=== PATIENT | female | born 1960 | race Caucasian/White ===

== ENCOUNTER 2019-12-14 15:19 | Outpatient (CLI) | payer BC, SELFPAY ==
--- NOTE | ~2019-12-14 | MM_ITS ---
EXAMINATION: MM screening [facility] BI w shannon HISTORY: Screening mammogram TECHNIQUE: Craniocaudal and mediolateral oblique 3-D tomosynthesis images were obtained and synthetic 2-D images were generated. CAD analysis was submitted and interpreted. COMPARISON: 11/24/2018 bilateral digital screening mammogram 11/21/2017 bilateral diagnostic digital mammogram 10/30/2017 bilateral digital screening mammogram BREAST PARENCHYMAL COMPOSITION: The breasts are heterogeneously dense, which may obscure small masses . FINDINGS: There is no evidence of suspicious mass, calcification, or architectural distortion to sugg est malignancy in either breast. There has been no suspicious interval change. IMPRESSION: 1. No mammographic evidence of malignancy. 2. Recommend routine screening mammography in one year. BI-RADS Category 1: Negative Reviewed, dictated and finalized at location A. CLINICIAN
--- NOTE | ~2019-12-14 | DEXA_ITS ---
Bone Density Report Name: Krissy Cheng Age: 59 Sex: Female Ethnicity: White Date of : 1960 Indication: postmenopausal osteoporosis; height loss; hysterectomy; Referring Provider: FLAKO LAZAR Study: Bone densitometry was performed. Exam Date: December 14, 2019 Accession number: [id number] Bone Density: Region BMD T-score Z-score Classification AP Spine (L1, L2, L4) 0.566 -4.3 -3.0 Osteoporosis Femoral Neck (Left) 0.458 -3.5 -2.4 Osteoporosis Total Hip (Left) 0.496 -3.7 -2.9 Osteoporosis Total Hip Bilateral Avg 0.458 -4.0 -3.2 Osteoporosis Femoral Neck (Right) 0.388 -4.2 -3.0 Osteoporosis Total Hip (Right) 0.420 -4.3 -3.5 Osteoporosis World Health Organization criteria for BMD impression classify patients as: Normal (T-score at or above -1.0), Osteopenia (T-score between -1.0 and -2.5), or Osteoporosis (T-score at or below -2.5). 10-year Fracture Risk: FRAX not reported because: Some T-score for Spine Total or Hip Total or Femoral Neck at or below -2.5 Previous Exams: Region Exam Age BMD T-score BMD Change BMD Change Date g/cm2 vs Baseline vs Previous AP Spine(L1, L2, L4) 12/14/2019 59 0.566 -4.3 -0.066(-10.5%) -0.028(-4.7%)* 10/30/2017 57 0.594 -4.0 -0.038(-6.1%)* -0.038(-6.1%)* 10/24/2016 56 0.632 -3.7 Total Hip(Left) 12/14/2019 59 0.496 -3.7 -0.018(-3.5%) 0.015(3.2%) 10/30/2017 57 0.481 -3.8 -0.033(-6.4%)* -0.033(-6.4%)* 10/24/2016 56 0.514 -3.5 Total Hip(Right) 12/14/2019 59 0.420 -4.3 -0.080(-15.9%) -0.056(-11.8%) 10/30/2017 57 0.477 -3.8 -0.023(-4.6%) -0.023(-4.6%) 10/24/2016 56 0.500 -3.6 *Denotes significance at 95% confidence level, LSC for AP Spine = 0.022 g/cm2, LSC for Total Hip = 0.027 g/cm2 Clinical Information Provided by Patient: Has used the following medications: Vitamin D, Calcium Has the following medical conditions: Hysterectomy Patient maximum height was 66.0 Menopause Age: 42 No regular weight bearing exercise Drinks caffeinated beverages Onset of menses at age 16 Number of children 1 Impression: The patient has osteoporosis, based on the Total Spine T-score. The BMD for the AP Spine(L1, L2, L4) decreased, changing by -4.7% since the last DXA exam. The BMD for the Total Hip(Right) decreased, changing by -11.8% since the last DXA exam. Discussion: HIGH RISK OF FRACTURE. BONE DENSITY IS UNDESIRABLY LOW AT ONE OR MORE SKELETAL SITES, CONSISTENT WITH OSTEOPOROSIS
== END 2019-12-14 15:20 | disposition home or self-care (01) ==
PROVIDERS: PCP Internal Medicine; Visit Provider Obstetrics & Gynecology
DX: M81.0 Age-related osteoporosis without current pathological fracture (principal); Z78.0 Asymptomatic menopausal state; Z12.31 Encounter for screening mammogram for malignant neoplasm of breast
CPT/HCPCS: 77063; 77067; 77080

== ENCOUNTER 2021-02-16 15:55 | Outpatient (CLI) | payer BC, SELFPAY | END 2021-02-16 15:56 | disposition home or self-care (01) | LOC: ANHCOVIDVC 15:55 | PROVIDERS: PCP Internal Medicine | DX: Z23 Encounter for immunization (principal) | CPT/HCPCS: 0001A; 91300 ==

== ENCOUNTER 2021-03-09 15:36 | Outpatient (CLI) | payer BC, SELFPAY | END 2021-03-09 15:37 | disposition home or self-care (01) | LOC: ANHCOVIDVC 15:37 | PROVIDERS: PCP Internal Medicine | DX: Z23 Encounter for immunization (principal) | CPT/HCPCS: 0002A; 91300 ==

== ENCOUNTER 2021-04-17 17:18 | Outpatient (CLI) | payer BC, SELFPAY ==
--- NOTE | ~2021-04-17 | MM_ITS ---
EXAMINATION: MM screening [facility] BI w shannon HISTORY: Screening mammogram TECHNIQUE: Craniocaudal and mediolateral oblique 3-D tomosynthesis images were obtained and synthetic 2-D images were generated. CAD analysis was submitted and interpreted. COMPARISON: 12/14/2019, 11/24/2018, 11/21/2017 BREAST PARENCHYMAL COMPOSITION: The breasts are heterogeneously dense, which may obscure small masses . FINDINGS: There is no evidence of suspicious mass, calcification, or architectural distortion to sugg est malignancy in either breast. There has been no suspicious interval change. IMPRESSION: 1. No mammographic evidence of malignancy. 2. Recommend routine screening mammography in one year. BI-RADS Category 1: Negative Reviewed, dictated and finalized at location A.
== END 2021-04-17 17:19 | disposition home or self-care (01) ==
LOC: ANHIMG 17:19
PROVIDERS: PCP Internal Medicine; Visit Provider Obstetrics & Gynecology
DX: Z12.31 Encounter for screening mammogram for malignant neoplasm of breast (principal)
CPT/HCPCS: 77063; 77067

== ENCOUNTER 2022-04-14 10:14 | Emergency (ER) | payer BC, SELFPAY ==
[2022-04-14] VITALS (23 sets, daily range): BP systolic 101–144; BP diastolic 45–80; PULSE 117–137; RESP 16–67; TEMP 37.7–37.8; O2SAT 95–100
--- NOTE | ~2022-04-14 | CT_ITS ---
EXAMINATION: CT BRAIN W/O DATE: 04/14/2022 11:09 INDICATION: Severe headache. Nausea. TECHNIQUE: Computed tomography (CT) of the head was performed without intravenous contrast. The dose- length product was 605.33 mGy-cm. Automated exposure control and iterative reconstruction technique w ere employed. COMPARISON: No prior studies for comparison. FINDINGS: Normal brain parenchymal volume for age. Normal ortega-white differentiation. No acute intrac ranial hemorrhage, infarction, mass or mass effect. No ventriculomegaly or midline shift. Midline sagittal images demonstrate a normal corpus callosum, c raniovertebral junction and sella turcica. Basilar cisterns are patent. Paranasal sinuses and mastoids are pneumatized. No depressed skull fractures. IMPRESSION: 1. No acute intracranial abnormality. Reviewed, dictated and finalized at location A.
--- NOTE | ~2022-04-14 | XR_ITS ---
EXAMINATION: XR chest 1V portable 04/14/2022 11:24 INDICATION: Fever PROCEDURE: AP portable chest COMPARISON: 08/02/2016 FINDINGS: The lungs are clear. The cardiomediastinal silhouette is within normal limits. There are no pleural effusions. There is no pneumothorax suspected. IMPRESSION: 1: NO ACUTE CARDIOPULMONARY DISEASE. Reviewed, dictated and finalized at location A.
--- NOTE | 2022-04-14 10:38 | ECG_ITS ---
Measurements Intervals [place] Rate: 137 P: 64 MN: 138 QRS: 88 QRSD: 85 T: 53 QT: 301 QTc: 455 Interpretive Statements SINUS TACHYCARDIA MODERATE ST DEPRESSION [0.05+ mV ST DEPRESSION] ABNORMAL ECG NO PREVIOUS ECG AVAILABLE FOR COMPARISON Electronically Signed On 04-14-2022 11:09:43 CDT by Mango Narvaez M.D.
[2022-04-14] MEDS: ONDANSETRON INJ 4 MG/2 ML VIAL IV PUSH (10:50)
[2022-04-14] MEDS: LACTATED RINGERS 1,000 ML 999 ML IV CONT ×2 (10:50→11:17)
[2022-04-14] MEDS: KETOROLAC 30 MG/ML VIAL (*BKC) IV PUSH (10:50)
[2022-04-14 10:53] LABS: Basophils Percent Auto 0.1 % (0.2-1.2); Eosinophils Absolute Auto 0.1 K/mm3 (0-0.3); Eosinophils Percent Auto 0.3 % (0-4.4); Hematocrit 37.2 % (37.0-47.0); Hemoglobin 12.3 g/dL (12.0-15.0); Immature Granulocyte Absolute 0.05 K/mm3 (0.00-0.031); Immature Granulocyte Percent A 0.3 % (0-0.5); Lymphocytes Absolute Auto 0.61 K/mm3 (0.9-3.2); Mean Corpuscular HGB Conc 33.1 g/dl (32-36); Mean Corpuscular Hemoglobin 30.8 pg (26-34); Mean Platelet Volume 10.5 fl (7.4-10.4); Monocytes Absolute Auto 0.5 K/mm3 (0.1-0.6); Monocytes Percent Auto 3.2 % (2.6-8.5); Neutrophils Absolute Auto 13.9 K/mm3 (1.3-6.7); Neutrophils Percent Auto 92.1 % (45.5-73.1); Platelet Count Result 249 k/mm3 (150-375); Red Cell Distribution Width 11.9 % (11.5-14.5); White Blood Count 15.1 K/mm3 (4.5-10.0)
[2022-04-14 11:03] LABS: Ethanol < 10 mg/dL (<10)
[2022-04-14 11:04] LABS: Lactic Acid Reflex 1.1 mmol/L (0.7-2.0)
[2022-04-14 11:05] LABS: Partial Thromboplastin Time 26.9 SECONDS (22.3-36.8)
[2022-04-14 11:08] LABS: Alanine Aminotransferase 20 U/L (6-35); Albumin Level 4.3 g/dL (3.5-5.1); Alkaline Phosphatase 86 U/L (38-126); Anion Gap 6 mmol/L (8-16); Aspartate Amino Transferase 28 U/L (14-36); Bilirubin,Total 0.3 mg/dL (0.2-1.3); Blood Urea Nitrogen 17 mg/dL (7-17); CRP < 0.5 mg/dL (<1.0); Calcium 9.3 mg/dL (8.4-10.2); Carbon Dioxide 27 mmol/L (22-30); Chloride 105 mmol/L (98-107); Estimated CRCL calculation 78 ml/min; Estimated Glomerular Filt Rate > 60; Glucose 110 mg/dL (65-110); Lipase 79 U/L (23-300); Magnesium 1.4 mg/dL (1.6-2.3); Potassium 3.6 mmol/L (3.4-5.0); Sodium 138 mmol/L (137-145)
--- NOTE | 2022-04-14 11:23 | ED.HA ---
HPI - Headache General Chief Complaint: Headache Stated Complaint: Headache, Nausea, Shaking Time Seen by Provider: 04/14/22 10:30 Source: patient, RN notes reviewed and old records reviewed Mode of arrival: ambulatory Limitations: no limitations History of Present Illness HPI Narrative: THis is a 61 year old female with history of anxiety, migraine headache who presents for evaluation of headache and body aches. SHe states this morning at 9 am she developed body aches, frontal headache and shaking. Patient reports headache is constant and severe. Her pain is located in frontal and posterior. She is unable to describe her headache. She states it just hurts. She reports history of migraine headaches and this is one her worse headaches. She has associated nausea. She has not taken any of her migraine medicine today. She states she did take excedrin today. She denies sick contacts. Related Data Home Medications Medication Instructions Recorded Confirmed ergocalciferol (vitamin D2) 1,250 50,000 unit PO MONTHLY 09/01/19 03/15/22 mcg (50,000 unit) capsule (Vitamin D2) Allergies Allergy/AdvReac Type Severity Reaction Status Date / Time codeine Allergy Unknown Nausea and Verified 04/14/22 10:29 Vomiting Review of Systems Review of Systems: All systems reviewed & are unremarkable except as noted in HPI and below Constitutional: Constitutional: Reports chills and Reports fatigue ENT: Reports nasal congestion and Denies sore throat Cardiovascular: Cardiovascular: Denies chest pain and Reports rapid heart rate Respiratory: Respiratory: Denies chest congestion and Denies cough Gastrointestinal: Gastrointestinal: Reports abdominal pain, Denies bloating, Reports nausea and Denies vomiting Musculoskeletal: Musculoskeletal: Reports myalgias Neurologic: Reports headache(s) and Denies focal weakness [facility] Past Medical History Medical History (Updated 04/14/22 @ 15:06 by Damaris Motta MD) Anxiety disorder, unspecified History of vaginal delivery Surgical History Surgical History History of appendectomy S/P partial hysterectomy Family History Family History Mother Family history of osteoporosis Father Patient's father is in good health Sibling Patient's sister is in good health Patient's brother is in good health Social History Social History Smoking status: Former smoker Second hand tobacco smoke exposure: Yes Smoking end date: 11/03/12 Alcohol intake: never Substance use: never Exam Const: General: alert and ill appearing Nutritional Appearance: thin Orientation/consciousness: patient oriented x3 HENMT: Ears: external ears normal and TM's normal bilaterally General nose exam: Normal external nose present Mouth: Yes Normal oral and palatal mucosa present Throat: posterior oropharynx normal Eyes: Conjunctivae: conjunctivae normal Pupils: Equal, round and reactive pupils present EOM: EOMs intact bilaterally Neck: Neck: normal visual inspection, no lymphadenopathy and no meningeal signs Chest: Chest palpation & inspection: normal inspection of the chest Resp: Effort & Inspection: normal respiratory effort Auscultation: clear to auscultation bilaterally and breath sounds present Cardio: Rate: tachycardic Rhythm: regular rhythm Heart sounds: no murmurs GI: GI Palp: Yes Soft to palpation, No Tenderness to palpation present (GI), No Guarding due to palpation present (GI) and No Rigid due to palpation Auscultation: normal bowel sounds Skin: General skin exam: normal color Rashes: no rashes Other: hot to touch Neuro: General: patient oriented x3, moves all extremities, no meningeal signs and CN's II-XI intact bilaterally Other: shaking all over Extrem: General: normal to inspection, no ped
[2022-04-14 11:36] LABS: Influenza A QL RT-PCR Negative (Negative); Influenza B QL RT-PCR Negative (Negative); SARS-CoV-2 RNA PCR Positive
[2022-04-14 11:36] LABS: Appearance Urine Clear (Clear); Bilirubin Urine Negative (Negative); Blood Urine Negative (Negative); Color Urine Yellow (Yellow); Glucose Urine UA Negative (Negative); Ketones Urine Negative (Negative); Leukocyte Esterase Ur Negative LEU/UL (Negative); Nitrate Urine Negative (Negative); Protein Urine Negative (Negative); Urobilinogen Urine 0.2 mg/dL (<2.0)
[2022-04-14 11:40] LABS: Add Urine Microscopic? NO
[2022-04-14] MEDS: diphenhydrAMINE HCl INJ 50 MG/ML VIAL IV PUSH (11:59)
[2022-04-14] MEDS: METOCLOPRAMIDE HCL INJ 10 MG/2 ML VIAL IV PUSH (11:59)
[2022-04-14 12:11] LABS: Amphetamine Screen Urine Negative (Negative); Barbiturate Screen Urine Positive (Negative); Benzodiazepines Screen Urine Negative (Negative); Cannabinoid Screen Urine Negative (Negative); Cocaine Screen Urine Negative (Negative); Methadone Screen Urine Negative (Negative); Opiate Screen Urine Negative (Negative); Phencyclidine Screen Urine Negative (Negative)
[2022-04-14] MEDS: SODIUM CHLORIDE 0.9% IV 1,000 ML 999 ML IV CONT (13:18)
== END 2022-04-14 15:17 | disposition home or self-care (01) ==
PROVIDERS: Emergency Provider General Practice; PCP Internal Medicine
DX: U07.1 COVID-19 (principal); R51.9 Headache, unspecified; Z87.891 Personal history of nicotine dependence; R00.0 Tachycardia, unspecified
CPT/HCPCS: 36415; 70450; 71045; 80053; 80307; 81003; 83605; 83690; 83735; 85025; 85730; 86140; 87081; 87502; 87880; 93005; 96361; 96365; 96375; 99284; C9803; J0131; J1200; J1885; J2405; J2765; J7030; J7120; U0003; U0005

== ENCOUNTER 2022-04-16 09:27 | Emergency (ER) | payer BC, SELFPAY ==
--- NOTE | ~2022-04-16 | CT_ITS ---
EXAMINATION: CT abdomen pelvis wo con DATE: 04/16/2022 11:38 INDICATION: Abdominal pain. Nausea and vomiting. Abnormal liver function tests. TECHNIQUE: Computed tomography (CT) of the abdomen and pelvis was performed without intravenous contr ast. Automated exposure control and iterative reconstruction technique were employed. The dose-length product was 81.73 mGy-cm. COMPARISON: None. FINDINGS: The visualized portions of the lung bases demonstrate a calcified left lower lobe nodule an d calcified left hilar lymph node, consistent with old granulomatous disease. No pleural effusion. Th e heart size is normal. No pericardial effusion. The liver, gallbladder, spleen, pancreas, adrenal gl ands, and kidneys are normal. There is no urolithiasis. There are no dilated loops of bowel. There ar e changes of appendectomy. There are no pathologically enlarged lymph nodes. There is physiologic flu id in the pelvis. There is mild lumbar spondylosis. IMPRESSION: 1. No etiology for the patient's symptoms. Reviewed, dictated and finalized at location B.
--- NOTE | 2022-04-16 10:13 | ED.HA ---
HPI - Headache General Chief Complaint: Weakness Stated Complaint: covid positive/dehydration Time Seen by Provider: 04/16/22 10:05 History of Present Illness HPI Narrative: Patient is a 61-year-old female here for evaluation of multiple medical complaints. Patient initially presented to the emergency department 2 days ago for a headache and feeling dehydrated. Her head CT was negative, her COVID test was positive, she was discharged home after her symptoms improved with medications and fluids. Patient states she was feeling better until this morning.She developed some epigastric abdominal pain described as a burning sensation, nausea and has had about 5 episodes of vomiting nonbloody/nonbilious emesis. States her abdominal pain is present prior to throwing up. Additionally, her headache returned and is present across the front of her head. She has a history of migraine headaches and states this feels similar to previous. Denies weakness, visual changes, facial droop, sudden onset of headache, neck stiffness or tightness, cough, shortness of breath, chest pain, fevers. Related Data Home Medications Medication Instructions Recorded Confirmed ergocalciferol (vitamin D2) 1,250 50,000 unit PO MONTHLY 09/01/19 03/15/22 mcg (50,000 unit) capsule (Vitamin D2) Allergies Allergy/AdvReac Type Severity Reaction Status Date / Time codeine Allergy Unknown Nausea and Verified 04/15/22 10:21 Vomiting Review of Systems Review of Systems: Gen: Denies fevers or chills Eyes: Denies eye pain or visual change ENT: Denies congestion Respiratory: Denies shortness of breath or cough CV: Denies chest pain or palpitations GI: Reports abdominal pain nausea, emesis. no diarrhea denies burning, urgency, frequency or hematuria Musculoskeletal: Denies back pain or muscle pain Neuro: Reports headache. Denies numbness, tingling, weakness or focal weakness Skin: Denies rash Except as documented, all other systems reviewed and negative [facility] Past Medical History Medical History (Updated 04/16/22 @ 12:18 by Abigail Babcock PA-C) Anxiety disorder, unspecified History of vaginal delivery Surgical History Surgical History History of appendectomy S/P partial hysterectomy Family History Family History Mother Family history of osteoporosis Father Patient's father is in good health Sibling Patient's sister is in good health Patient's brother is in good health Social History Social History Smoking status: Former smoker Second hand tobacco smoke exposure: Yes Smoking end date: 11/03/12 Alcohol intake: never Substance use: never Exam Narrative: APPEARANCE: No acute distress, nontoxic, resting in bed EYES: EOMI HEENT: Normocephalic, atraumatic, OMM. No sinus tenderness RESPIRATORY: No respiratory distress Clear to auscultation bilaterally with no rhonchi wheezing or rales. CARDIOVASCULAR: Regular rate and rhythm without murmurs rubs or gallops. ABDOMINAL: Soft, nontender, nondistended, no rebound or guarding MUSCULOSKELETAL: Moves all extremities. No clubbing, cyanosis or edema. NEURO: Cranial nerves II through XII intact. awake and alert. Following commands, speech normal, no focal deficits SKIN: Warm, dry. No rashes lesions or abrasions PSYCHIATRIC: Normal affect/mood Course Vital Signs Vital signs: Vital Signs Temperature 37.1 C 04/16/22 10:18 Pulse Rate 91 04/16/22 10:18 Respiratory Rate 18 04/16/22 10:18 Blood Pressure 133/89 04/16/22 10:18 Pulse Oximetry 98 04/16/22 10:18 Oxygen Delivery Room Air 04/16/22 10:18 Temperature 37.1 C 04/16/22 10:18 Pulse Rate 91 04/16/22 10:18 Respiratory Rate 18 04/16/22 10:18 Blood Pressure 139/87 04/16/22 10:46 Pulse Oximetry 99 04/16/22 10:31 Oxygen Deliv
[2022-04-16 10:18] VITALS: BP 133/89; PULSE 91; RESP 18; TEMP 37.1; O2SAT 98
[2022-04-16 10:31] VITALS: BP 131/78; O2SAT 99
[2022-04-16 10:40] LABS: Hematocrit 37.2 % (37.0-47.0); Hemoglobin 12.3 g/dL (12.0-15.0); Mean Corpuscular HGB Conc 33.1 g/dl (32-36); Mean Corpuscular Hemoglobin 30.5 pg (26-34); Mean Corpuscular Volume 92.3 fl (80-100); Platelet Count Result 146 k/mm3 (150-375); Red Blood Count 4.03 M/mm3 (4.2-5.4); White Blood Count 3.9 K/mm3 (4.5-10.0)
[2022-04-16 10:46] VITALS: BP 139/87
[2022-04-16] MEDS: SODIUM CHLORIDE 0.9% IV 1,000 ML 999 ML IV CONT (10:52)
[2022-04-16 10:53] LABS: Alanine Aminotransferase 120 U/L (6-35); Albumin Level 3.8 g/dL (3.5-5.1); Alkaline Phosphatase 82 U/L (38-126); Anion Gap 4 mmol/L (8-16); Aspartate Amino Transferase 112 U/L (14-36); Bilirubin,Total 0.2 mg/dL (0.2-1.3); Blood Urea Nitrogen 10 mg/dL (7-17); Calcium 7.9 mg/dL (8.4-10.2); Carbon Dioxide 28 mmol/L (22-30); Chloride 105 mmol/L (98-107); Estimated CRCL calculation 78 ml/min; Estimated Glomerular Filt Rate > 60; Glucose 104 mg/dL (65-110); Lipase 115 U/L (23-300); Potassium 3.3 mmol/L (3.4-5.0); Sodium 137 mmol/L (137-145)
[2022-04-16] MEDS: FAMOTIDINE 20 MG/2 ML VIAL IV PUSH (10:53)
[2022-04-16] MEDS: PROCHLORPERAZINE EDISYLATE 10 MG/2 ML VIAL IV PUSH (10:53)
[2022-04-16] MEDS: diphenhydrAMINE HCl INJ 50 MG/ML VIAL 12.5 MG IV PUSH (10:53)
[2022-04-16 11:05] LABS: Band Neutrophils Percent 19 % (0-6); Eosinophils Absolute Manual 0.03 K/mm3 (0.02-0.5); Eosinophils Percent Manual 1 % (0-4); Lymphocytes Absolute Manual 0.81 K/mm3 (1.1-4.5); Monocytes Absolute Manual 0.15 K/mm3 (0.1-0.90); Monocytes Percent Manual 4 % (3-9); Neutrophils Absolute Manual 2.88 K/mm3 (1.7-7.2); Neutrophils Percent Manual 55 % (46-73); Platelet Estimate Adequate (Adequate); Total Cells Counted 100
[2022-04-16 11:06] LABS: Atypical Lymphocytes Present
== END 2022-04-16 12:55 | disposition home or self-care (01) ==
PROVIDERS: Physician Assistant; Emergency Provider Emergency Medicine; PCP Internal Medicine
DX: U07.1 COVID-19 (principal); Z87.891 Personal history of nicotine dependence
CPT/HCPCS: 36415; 74176; 80053; 83690; 85025; 96361; 96374; 96375; 99284; J0780; J1200; J7030

== ENCOUNTER 2022-06-20 16:53 | Outpatient (CLI) | payer BC, SELFPAY ==
--- NOTE | ~2022-06-20 | MM_ITS ---
EXAMINATION: MM screening [facility] BI w shannon HISTORY: Screening mammogram TECHNIQUE: Craniocaudal and mediolateral oblique 3-D tomosynthesis images were obtained and synthetic 2-D images were generated. CAD analysis was submitted and interpreted. COMPARISON: 04/17/2021, 12/14/2019, 11/24/2018 bilateral screening mammogram examinations BREAST PARENCHYMAL COMPOSITION: The breasts are heterogeneously dense, which may obscure small masses . FINDINGS: There is no evidence of suspicious mass, calcification, or architectural distortion to sugg est malignancy in either breast. There has been no suspicious interval change. IMPRESSION: 1. No mammographic evidence of malignancy. 2. Recommend routine screening mammography in one year. BI-RADS Category 1: Negative Reviewed, dictated and finalized at location A.
== END 2022-06-20 16:54 | disposition home or self-care (01) ==
PROVIDERS: PCP Internal Medicine; Visit Provider Obstetrics & Gynecology
DX: Z12.31 Encounter for screening mammogram for malignant neoplasm of breast (principal)
CPT/HCPCS: 77063; 77067

== ENCOUNTER → 2022-12-12 16:53 | Outpatient (CLI) | payer BC, SELFPAY ==
--- NOTE | ~2022-12-12 | XR_ITS ---
EXAMINATION: XR chest 2V DATE: 12/12/2022 17:33 INDICATION: Cough TECHNIQUE: PA and lateral views of the chest were obtained. COMPARISON: Chest radiograph dated 04/14/2022 FINDINGS: Again seen is mild biapical pleural-parenchymal scarring as well as an additional small focus of line ar atelectasis/scarring at the lateral right upper lung zone. Small calcified nodule at the left lung base along with calcified lymph nodes along the descending aorta consistent with old granulomatous d isease. No new airspace opacities, pulmonary edema, pleural effusion or pneumothorax. The cardiomedia stinal silhouette is normal. Visualized bones and soft tissues are unremarkable. IMPRESSION: 1. No acute cardiopulmonary disease. Reviewed, dictated and finalized at location A. 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
== END ==
PROVIDERS: PCP Internal Medicine; Visit Provider Internal Medicine
DX: R05.9 Cough, unspecified (principal)
CPT/HCPCS: 71046

== ENCOUNTER 2023-11-12 14:44 | Outpatient (CLI) | payer BC, SELFPAY ==
--- NOTE | ~2023-11-12 | DEXA_ITS ---
Bone Density Report Name: LAURA AIKEN Age: 63 Sex: Female Ethnicity: White Date of : 1960 Indication: postmenopausal; screening for osteoporosis; hysterectomy; Referring Provider: FLAKO LAZAR Study: Bone densitometry was performed. Exam Date: November 12, 2023 Accession number: [id number] Bone Density: Region BMD T-score Z-score Classification AP Spine(L1-L4) 0.560 -4.4 -2.9 Osteoporosis Femoral Neck (Left) 0.382 -4.2 -2.9 Osteoporosis Total Hip (Left) 0.448 -4.0 -3.0 Osteoporosis Femoral Neck (Right) 0.417 -3.9 -2.6 Osteoporosis Total Hip (Right) 0.457 -4.0 -3.0 Osteoporosis Total Hip Mean 0.453 -4.0 -3.0 Osteoporosis World Health Organization criteria for BMD impression classify patients as: Normal (T-score at or above -1.0), Osteopenia (T-score between -1.0 and -2.5), or Osteoporosis (T-score at or below -2.5). 10-year Fracture Risk: FRAX not reported because: Some T-score for Spine Total or Hip Total or Femoral Neck at or below -2.5 Clinical Information Provided by Patient: Has used the following medications: Vitamin D, Calcium Has the following medical conditions: Hysterectomy Patient maximum height was 65.0 Menopause Age: 42 Drinks caffeinated beverages Onset of menses at age 16 Number of children 1 Impression: The patient has osteoporosis, based on the Total Spine T-score. Discussion: HIGH RISK OF FRACTURE. BONE DENSITY IS UNDESIRABLY LOW AT ONE OR MORE SKELETAL SITES, CONSISTENT WITH OSTEOPOROSIS. ALSO, BONE DENSITY IS LOWER THAN EXPECTED FOR AGE AND SEX AT ONE OR MORE SKELETAL SITES; RECOMMEND A DILIGENT SEARCH FOR SECONDARY CAUSES OF BONE LOSS. This patient's lowest T-score meets the World Health Organization's (WHO) criteria for osteoporosis at one or more sites (T-score -2.5 or below). In untreated patients, the risk of osteoporotic fracture increases approximately two-fold for each 1.0 SD decrease in T-score. Low bone density is not the only risk factor for fracture; also consider factors such as patient's age, frailty or poor health, risk of falling, risk of injury, previous osteoporotic fracture, family history of osteoporosis, cigarette smoking, low body weight, etc. Not everyone with low bone mineral density has osteoporosis; osteomalacia and other metabolic bone disorders should also be considered. Patients who have osteoporosis should be evaluated for specific diseases and conditions (secondary causes) that may cause or contribute to bone loss. The [place] [employer] Endocrinologists (AACE) and National Osteoporosis Foundation (NOF) recommend pharmacologic intervention for all postmenopausal women whose T-score is in this range. Also, this patient's bone mineral density is below the range considered normal for healthy age-, sex-, and race-matched
--- NOTE | ~2023-11-12 | MM_ITS ---
EXAMINATION: MM screening [facility] BI w shannon HISTORY: Screening mammogram TECHNIQUE: Craniocaudal and mediolateral oblique 3-D tomosynthesis images were obtained and synthetic 2-D images were generated. CAD analysis was submitted and interpreted. COMPARISON: 06/20/2022, 04/17/2021, 12/14/2019 BREAST PARENCHYMAL COMPOSITION: The breasts are heterogeneously dense, which may obscure small masses . FINDINGS: RIGHT BREAST: No suspicious mass, calcification, or architectural distortion are identified to sugges t malignancy. There has been no suspicious interval change. LEFT BREAST: There is focal asymmetry in the posterior third of the far outer breast approximately 6 cm from the nipple. IMPRESSION: 1. Left breast focal asymmetry. 2. Additional mammographic views and possible breast ultrasound are recommended. BI-RADS Category 0: Incomplete: Needs additional imaging evaluation. Reviewed, dictated and finalized at location A. R UNLOADER IMPRESSION: 1. Left breast focal asymmetry. 2. Additional mammographic views and possible breast ultrasound are recommended . BI-RADS Category 0: Incomplete: Needs additional imaging evaluation.
== END 2023-11-12 14:45 | disposition home or self-care (01) ==
LOC: ANHIMG 14:46
PROVIDERS: PCP Internal Medicine; Visit Provider Obstetrics & Gynecology
DX: Z12.31 Encounter for screening mammogram for malignant neoplasm of breast (principal); M81.0 Age-related osteoporosis without current pathological fracture; N64.89 Other specified disorders of breast
CPT/HCPCS: 77063; 77067; 77080

== ENCOUNTER 2023-12-10 12:35 | Outpatient (CLI) | payer BC, SELFPAY ==
--- NOTE | ~2023-12-10 | MMUS_ITS ---
EXAMINATION: MM diagnostic madeline LT w shannon, US breast LT limited HISTORY: Focal left breast asymmetry reported in posterior third for outer breast approximately 6 cm from nipple on 11/12/2023 screening mammogram TECHNIQUE: Additional 3-D tomosynthesis images of the left breast were performed and synthetic 2-D im ages were generated. Exaggerated lateral craniocaudal view of left breast. CAD analysis was submitted and interpreted. High resolution upper outer quadrant left breast ultrasound was performed. COMPARISON: 11/12/2023, 06/20/2022, 03/17/2021, 12/14/2019 bilateral screening mammogram examinations FINDINGS: MAMMOGRAPHIC FINDINGS: No suspicious mass, architectural distortion, malignant calcification, skin thickening or retraction or significant change since 12/14/2019 is evident. ULTRASOUND: No suspicious mass or shadowing or suspicious vascularity on color flow imaging is evident. IMPRESSION: 1. Probable benign finding 2. 6 month follow-up diagnostic mammogram is recommended with ultrasound if required BI-RADS category 3, probably benign findings. Reviewed, dictated and finalized at location A. MODELER IMPRESSION: 1. Probable benign finding 2. 6 month follow-up diagnostic mammogram is recommended with ultrasound if req uired BI-RADS category 3, probably benign findings.
== END 2023-12-10 12:36 | disposition home or self-care (01) ==
LOC: ANHIMG 12:38
PROVIDERS: PCP Internal Medicine; Visit Provider Obstetrics & Gynecology
DX: R92.8 Other abnormal and inconclusive findings on diagnostic imaging of breast (principal)
CPT/HCPCS: 76642; 77061; 77065; G0279

== ENCOUNTER 2024-08-05 12:33 | Outpatient (CLI) | payer BC, SELFPAY ==
--- NOTE | ~2024-08-05 | MM_ITS ---
EXAMINATION: MM diagnostic madeline LT w shannon HISTORY: Follow-up left breast asymmetry TECHNIQUE: Additional 3-D tomosynthesis images of the left breast were performed and synthetic 2-D im ages were generated. CAD analysis was submitted and interpreted. COMPARISON: Comparison to multiple prior studies sequentially, with oldest reviewed study dated 11/24. BREAST PARENCHYMAL COMPOSITION: Dense: The breasts are heterogeneously dense, which may obscure small masses 3 FINDINGS: The left breast is stable without evidence for malignancy. IMPRESSION: 1. No mammographic evidence for malignancy in the left breast. 2. Routine yearly screening mammogram and regular clinical breast examination are recommended. BI-RADS Category 1: Negative Reviewed, dictated and finalized at location B. IMPRESSION: 1. No mammographic evidence for malignancy in the left breast. 2. Routine yearly screening mammogram and regular clinical breast examination a re recommended. BI-RADS Category 1: Negative
== END 2024-08-05 12:34 | disposition home or self-care (01) ==
LOC: ANHIMG 12:34
PROVIDERS: PCP Internal Medicine; Visit Provider Obstetrics & Gynecology
DX: R92.8 Other abnormal and inconclusive findings on diagnostic imaging of breast (principal)
CPT/HCPCS: 77061; 77065; G0279

== ENCOUNTER 2025-10-12 14:24 | Outpatient (CLI) | payer BC, SELFPAY ==
--- NOTE | ~2025-10-12 | MM_ITS ---
EXAMINATION: MM screening [facility]eline BI w shannon HISTORY: Screening. TECHNIQUE: Craniocaudal and mediolateral oblique 3-D tomosynthesis images were obtained and synthetic 2-D images were generated. CAD analysis was submitted and interpreted. COMPARISON: 2023, 2021, and 2020 BREAST PARENCHYMAL COMPOSITION: Dense: The breasts are heterogeneously dense FINDINGS: No suspicious masses are seen. There are no suspicious calcifications. No unexplained architectural distortion is seen. There are no skin or nipple abnormalities identified. There is no adenopathy seen on the images submitted. IMPRESSION: No mammographic evidence to suggest malignancy is seen. The patient may return to screening mammography as per ACR guidelines. BI-RADS 1 - Negative. Reviewed, dictated and finalized at location C. POSTER
== END 2025-10-12 14:25 | disposition home or self-care (01) ==
LOC: ANHFOHIMG 14:26
PROVIDERS: PCP Internal Medicine; Visit Provider Obstetrics & Gynecology
DX: Z12.31 Encounter for screening mammogram for malignant neoplasm of breast (principal)
CPT/HCPCS: 77063; 77067